=== PATIENT | female | born 1990 ===

== ENCOUNTER 2017-03-29 10:42 | Emergency (ER) | payer OTHER ==
[2017-03-29 10:43] VITALS: BMI 26.9
[2017-03-29 10:53] VITALS: O2SAT 98
[2017-03-29 11:31] LABS: RBC URINE 3 /hpf (0-3); URINE BILIRUBIN NEGATIVE (NEGATIVE); URINE BLOOD NEGATIVE (NEGATIVE); URINE COLOR Yellow (YELLOW); URINE GLUCOSE (UA) NORMAL (Normal); URINE KETONE NEGATIVE (NEGATIVE); URINE LEUKOCYTE ESTERASE NEG Leu/uL (Negative); URINE PROTEIN NEGATIVE (NEGATIVE); URINE UROBILINOGEN NORMAL mg/dL (0.2-1.0); WBC URINE 1 /hpf (0-5)
[2017-03-29] MEDS ORDERED: Sodium Chloride 0.9% 1,000 ML IV ONE (11:33)
--- NOTE | 2017-03-29 12:09 | C.PDOC ---
History Of Present Illness 26 yr old female presents to the ER with complaints of epigastric abdominal pain for the past 2-3 days. Patient reports she is and has been having pelvic cramping. LMP was 01/25. Patient reports she had a scheduled [facility] appointment today which she missed. Patient denies fever, nausea, vomiting, diarrhea, dysuria, hematuria, weakness or numbness. Time Seen by Provider: 03/29/17 10:49 Chief Complaint (Nursing): Abdominal Pain History Per: Patient History/Exam Limitations: no limitations Onset/Duration Of Symptoms: Days (2-3) Current Symptoms Are (Timing): Still Present Location Of Pain/Discomfort: Epigastric Radiation Of Pain To:: None Quality Of Discomfort: Cramping Past Medical History Reviewed: Historical Data, Nursing Documentation, Vital Signs Vital Signs: Last Vital Signs Temp 97.8 F 03/29/17 10:49 Pulse 65 03/29/17 10:49 Resp 20 03/29/17 10:49 BP 109/67 03/29/17 10:49 Pulse Ox 98 03/29/17 12:14 Surgical History: Appendectomy Family History: States: No Known Family Hx - Social History Hx Tobacco Use: No Hx Alcohol Use: No Hx Substance Use: No - Immunization History Hx Tetanus Toxoid Vaccination: No Hx Influenza Vaccination: No Hx Pneumococcal Vaccination: No Review Of Systems Except As Marked, All Systems Reviewed And Found Negative. Constitutional: Negative for: Fever Gastrointestinal: Positive for: Abdominal Pain (Epigastric). Negative for: Nausea, Vomiting, Diarrhea Genitourinary: Negative for: Dysuria, Hematuria Neurological: Negative for: Weakness, Numbness Physical Exam - Physical Exam Appears: Non-toxic, No Acute Distress Skin: Warm, Dry, No Rash Head: Atraumatic, Normacephalic Oral Mucosa: Moist Cardiovascular: Rhythm Regular, No Murmur Respiratory: Normal Breath Sounds, No Rales, No Rhonchi, No Stridor, No Wheezing Gastrointestinal/Abdominal: Normal Exam, Soft, No Tenderness, No Guarding, No Rebound Back: Normal Inspection, No CVA Tenderness Extremity: Normal ROM, No Swelling Neurological/Psych: Oriented x3, Normal Speech, Normal Motor ED Course And Treatment - Laboratory Results Result Diagrams: 03/29/17 12:19 03/29/17 12:19 O2 Sat by Pulse Oximetry: 98 (RA) Pulse Ox Interpretation: Normal Progress Note: PLAN: US - Transvaginal, Labs, HCG, Urinalysis & Sodium Chloride IV. 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 I have reviewed the chart and agree that the record accurately reflects my personal performance of the history, physical exam, medical decision making, and the department course for this patient. I have also personally directed, reviewed, and agree with the discharge instructions and disposition.
[2017-03-29 12:36] LABS: BASO % 0.2 % (0.0-2.0); EOS # 0.1 K/uL (0.0-0.7); EOS % 0.9 % (0.0-4.0); LYMPH # 2.6 K/uL (1.0-4.3); LYMPH % 22.7 % (20.0-40.0); MEAN CELL VOLUME 84.4 fL (81.0-99.0); MEAN CORPUSCULAR HGB CONC 33.1 g/dL (33.0-37.0); MEAN PLATELET VOLUME 7.7 fL (7.2-11.7); MONO # 0.8 K/uL (0.0-0.8); RED CELL DISTRIBUTION WIDTH 13.4 % (11.5-14.5); WHITE BLOOD COUNT 11.6 K/uL (4.8-10.8)
[2017-03-29 13:00] LABS: ALB/GLOB RATIO 1.7 (1.0-2.1); ALKALINE PHOSPHATASE 54 U/L (38-126); ALT/SGPT 23 U/L (9-52); AST/SGOT 13 U/L (14-36); BILIRUBIN,TOTAL 0.6 mg/dL (0.2-1.3); BLOOD UREA NITROGEN 9 mg/dL (7-17); CALCIUM 8.7 mg/dl (8.6-10.4); CARBON DIOXIDE 21 mmol/L (22-30); CHLORIDE 100 mmol/L (98-107); GFR AFRICAN-AMERICAN > 60; GLUCOSE,RANDOM 76 mg/dL (65-105); POTASSIUM 3.7 mmol/L (3.6-5.2); SODIUM 133 mmol/L (132-148); TOTAL PROTEIN 6.3 g/dL (6.3-8.3)
--- NOTE | 2017-03-29 14:07 | US ---
PROCEDURE: OB Pelvic Ultrasound HISTORY: , ABD PAIN COMPARISON: Obstetric ultrasound examination 03/07/2017. FINDINGS: The prior prior trans abdominal pelvic ultrasound revealed no definitive intrauterine gestation but no ectopic either. Left wrist. At that time was reported seven weeks 2 days which suggests 5 weeks 6 days estimate gestational age at that time and 8 weeks 5 days at this time (patient states LMP is x-ray 11/03/2017). UTERUS: Based on menstrual dates, estimated gestational age is 8 weeks 5 days. Gestational sac: Single viable intrauterine gestation with an unremarkable appearing decidual reaction. Heart rate: 156 bpm. age (Ultrasound estimated): 8 weeks 0 days based on crown-rump length of 1.55 cm. Serenity-gestational hemorrhage: None. Date of delivery (Ultrasound estimated) : 11/07/2017. Uterus measures 12.3 x 4.8 x 6.9 cm. Normal in size and appearance. No definite myometrial mass. The cervix appears unremarkable. CERVIX: Long and closed. No cervical abnormality seen. RIGHT OVARY: Measures 2.7 x 2.2 x 2.9 cm cm. No mass lesion. Normal flow. LEFT OVARY: Measures 3.5 x 1.8 x 2.9 cm. No solid mass. Normal flow. FREE FLUID: None. OTHER FINDINGS: None. IMPRESSION: Interval identification of the single intrauterine gestation is now identified with average ultrasound age of 8 weeks 0 days based on mean crown-rump length measurement alone which generally agrees with menstrual dates of 8 weeks 5 days as per above. No decidual reaction is appreciable. Further clinical correlation is advised. Ultrasound follow-up can be provided as clinically warranted. No ectopic gestation identified at this time.
[2017-03-29 15:10] VITALS: BP 96/56; PULSE 70; RESP 18; TEMP 97.7
== END 2017-03-29 15:18 | disposition home or self-care (01) ==
LOC: C.ER 10:42
DX: O26.91 Pregnancy related conditions, unspecified, first trimester (principal); Z3A.08 8 weeks gestation of pregnancy
CPT/HCPCS: 76801; 80053; 81001; 84702; 84703; 85025; 86850; 86900; 96360; 99284; J7040

== ENCOUNTER 2017-04-15 16:26 | Emergency (ER) | payer OTHER ==
[2017-04-15 16:27] VITALS: BMI 26.9
[2017-04-15 16:31] VITALS: RESP 18
[2017-04-15] MEDS ORDERED: Sodium Chloride 0.9% 1,000 ML IV ONE (17:08)
[2017-04-15] MEDS ORDERED: DiphenhydrAMINE 50 mg/ml Inj IVP STA (17:08)
[2017-04-15] MEDS ORDERED: DiphenhydrAMINE 50 mg/ml Inj ONE (17:14)
[2017-04-15] MEDS ORDERED: Sodium Chloride 0.9% 1,000 ML ONE (17:14)
--- NOTE | 2017-04-15 17:16 | C.PDOC ---
History Of Present Illness 26yo female, 11 weeks , presents to ED for evaluation of gradual onset left sided headache for the past 2 days. She states the headache is associated with nausea and photophobia as well. She denies any fever, abdominal pain, vaginal bleeding, trauma, recent travels. She denies taking any medications for her symptoms. No other complaints. Time Seen by Provider: 04/15/17 16:40 Chief Complaint (Nursing): Headache History Per: Patient History/Exam Limitations: no limitations Onset/Duration Of Symptoms: Days (2) Current Symptoms Are (Timing): Still Present Associated Symptoms: Photophobia, Nausea Additional History Per: Patient Past Medical History Reviewed: Historical Data, Nursing Documentation, Vital Signs Vital Signs: Last Vital Signs Temp 97.0 F L 04/15/17 16:29 Pulse 83 04/15/17 16:29 Resp 18 04/15/17 16:29 BP 117/74 04/15/17 16:29 Pulse Ox 100 04/15/17 18:18 - Medical History PMH: No Chronic Diseases Surgical History: Appendectomy Family History: States: Unknown Family Hx - Social History Hx Tobacco Use: No Hx Alcohol Use: No Hx Substance Use: No - Immunization History Hx Tetanus Toxoid Vaccination: No Hx Influenza Vaccination: No Hx Pneumococcal Vaccination: No Review Of Systems Constitutional: Negative for: Fever Eyes: Positive for: Other (photophobia) Gastrointestinal: Positive for: Nausea. Negative for: Abdominal Pain Genitourinary: Negative for: Vaginal Bleeding Neurological: Positive for: Headache Physical Exam - Physical Exam Appears: Non-toxic, No Acute Distress Skin: Normal Color Head: Atraumatic, Normacephalic Eye(s): bilateral: Normal Inspection Neck: Supple Neurological/Psych: Oriented x3, Normal Speech, Normal Cognition ED Course And Treatment O2 Sat by Pulse Oximetry: 100 (RA) Pulse Ox Interpretation: Normal Medical Decision Making Medical Decision Making: Impression: Headache, Plan: -- Benadryl 25 mg IVP -- Reglan 10 mg IVP -- IV Fluids Time: 1816 Urinalysis results reviewed and no clinically significant abnormalities noted. Patient reports feeling better and is stable for discharge home. Disposition Counseled Patient/Family Regarding: Studies Performed, Diagnosis, Need For Followup - Disposition Disposition: HOME/ ROUTINE Disposition Time: 18:18 Condition: STABLE Additional Instructions: follow up with medical clinic in 2 days call to make an appointment take medications as prescribed return to hospital if symptoms worsens or progress Instructions: Acute Headache (DC) Forms: [employer] (Wolof), General Discharge Instructions Print Language: MONTSERRATIAN - Clinical Impression Clinical Impression: , Headache
[2017-04-15 18:11] LABS: RBC URINE 3 /hpf (0-3); URINE BILIRUBIN NEGATIVE (NEGATIVE); URINE BLOOD NEGATIVE (NEGATIVE); URINE COLOR Yellow (YELLOW); URINE GLUCOSE (UA) NORMAL (Normal); URINE KETONE NEGATIVE (NEGATIVE); URINE LEUKOCYTE ESTERASE TRACE Leu/uL (Negative); URINE PROTEIN NEGATIVE (NEGATIVE); URINE UROBILINOGEN NORMAL mg/dL (0.2-1.0); WBC URINE 4 /hpf (0-5)
[2017-04-15 18:30] VITALS: BP 98/62; PULSE 70; TEMP 98.2; O2SAT 98
== END 2017-04-15 18:33 | disposition home or self-care (01) ==
LOC: C.ER 16:26
DX: O26.891 Other specified pregnancy related conditions, first trimester (principal); Z3A.11 11 weeks gestation of pregnancy; R51 Headache
CPT/HCPCS: 81001; 96361; 96374; 96375; 99284; J1200; J2765; J7040

== ENCOUNTER 2017-05-26 20:22 | Emergency (ER) | payer OTHER ==
[2017-05-26 20:22] VITALS: BMI 26.9
[2017-05-26 21:01] VITALS: O2SAT 98
[2017-05-26] MEDS ORDERED: Sodium Chloride 0.9% 1,000 ML IV ONE (21:32)
--- NOTE | 2017-05-26 21:32 | C.PDOC ---
History Of Present Illness 26 year old female, approximately 6-8 weeks , who presents to the emergency department with a complaint of abdominal cramping associated with nausea, dull headache and decreased PO intake ongoing since yesterday. Denied any visual changes or further complaints. PMD: none provided Time Seen by Provider: 05/26/17 21:31 Chief Complaint (Nursing): Abdominal Pain History Per: Patient History/Exam Limitations: no limitations Onset/Duration Of Symptoms: Days (x2) Current Symptoms Are (Timing): Still Present Past Medical History Reviewed: Historical Data, Nursing Documentation, Vital Signs Vital Signs: Last Vital Signs Temp 98.4 F 05/26/17 20:58 Pulse 82 05/26/17 20:58 Resp 18 05/26/17 20:58 BP 99/61 L 05/26/17 20:58 Pulse Ox 98 05/26/17 23:45 - Medical History PMH: No Chronic Diseases Surgical History: Appendectomy Other Surgeries: left breast Family History: States: Unknown Family Hx - Social History Hx Tobacco Use: No Hx Alcohol Use: No Hx Substance Use: No - Immunization History Hx Tetanus Toxoid Vaccination: No Hx Influenza Vaccination: No Hx Pneumococcal Vaccination: No Review Of Systems Constitutional: Negative for: Fever, Chills Eyes: Negative for: Redness Cardiovascular: Negative for: Chest Pain Respiratory: Negative for: Shortness of Breath Gastrointestinal: Positive for: Nausea, Other (abdominal cramping) Genitourinary: Negative for: Dysuria Musculoskeletal: Negative for: Back Pain Skin: Negative for: Rash Neurological: Positive for: Headache (dull) Psych: Negative for: Anxiety Physical Exam - Physical Exam Appears: Well, Non-toxic, No Acute Distress Skin: Warm, Dry Oral Mucosa: Moist Neck: Supple Chest: Symmetrical Cardiovascular: Rhythm Regular Respiratory: No Decreased Breath Sounds, No Accessory Muscle Use, No Rales, No Rhonchi, No Wheezing Gastrointestinal/Abdominal: Soft, Tenderness (subumbilical mildly), No Guarding , No Rebound Back: No CVA Tenderness, Decreased ROM Extremity: No Tenderness Extremity: Bilateral: Atraumatic, Normal Color And Temperature, Normal ROM Neurological/Psych: Oriented x3, Normal Speech, Normal Cognition Gait: Steady ED Course And Treatment - Laboratory Results Result Diagrams: 05/26/17 22:29 05/26/17 22:29 O2 Sat by Pulse Oximetry: 98 (RA) Pulse Ox Interpretation: Normal Reevaluation Time: 00:02 Reassessment Condition: Improved Medical Decision Making Medical Decision Making: Initial Impression: Abdominal cramping; Nausea Initial Plan: * Type and screen * BETA-HCG * CMP * CBC * PTT * PT * NS 1,000ml IV per 1,000mls/hr * Zofran inj 4mg IVP * HCG, urine * Urinalysis * US transvaginal Time: 2343 --US transvag Findings: Cervix measures 3.9 CM. Placenta is posterior, low-lying, and free of the os. Single intrauterine with cardiac activity at a heart rate of 147 beats per minute. motion is identified. Limited anatomical assessment. Estimated menstrual age 16 weeks 5 days. No free fluid in the pelvis. Ovaries not visualized. Impression: Single intrauterine with cardiac activity at approximately 16 weeks 5 days menstrual age. Scribe Attestation: Documented by Tiki Gillette, acting as a scribe for Barry Cobb MD. Provider Scribe Attestation: All medical record entries made by the Scribe were at my direction and personally dictated by me. I have reviewed the chart and agree that the record accurately reflects my personal performance of the history, physical exam, medical decision making, and the department course for this patient. I have also personally directed, reviewed, and agree with the discharge instructions and disposition. Disposition Counseled Patient/Family Regarding: Studies Performed, Diagnosis, Need For Followup, Rx Given - Disposition Disposition: HOME/ ROUTINE Disposition Time: 21:31 Condition: FAIR Additional Instructions: please return if symptoms recur Prescriptions: Ondansetron ODT [Zofran ODT] 1 odt PO BID PRN #6 odt PRN Reason: Nausea/Vomiting Instructions: Abdominal Pain in (ED), Acute Nausea and Vomiting (ED) Forms: [employer] (Mohawk) Print Language: PRYDEINIG - Clinical Impression Clinical Impression: Abdominal pain during intrauterine , Nausea, Vomiting
[2017-05-26 22:35] LABS: BASO % 0.2 % (0.0-2.0); EOS # 0.2 K/uL (0.0-0.7); EOS % 1.5 % (0.0-4.0); HEMOGLOBIN 11.2 g/dL (11.0-16.0); LYMPH # 2.9 K/uL (1.0-4.3); LYMPH % 25.4 % (20.0-40.0); MEAN CELL VOLUME 84.3 fL (81.0-99.0); MEAN CORPUSCULAR HEMOGLOBIN 28.5 pg (27.0-31.0); MEAN CORPUSCULAR HGB CONC 33.9 g/dL (33.0-37.0); MEAN PLATELET VOLUME 7.2 fL (7.2-11.7); MONO # 0.8 K/uL (0.0-0.8); MONO % 6.8 % (0.0-10.0); NEUT # 7.6 K/uL (1.8-7.0); NEUT % 66.1 % (50.0-75.0); RBC 3.92 Mil/uL (3.80-5.20); WHITE BLOOD COUNT 11.5 K/uL (4.8-10.8)
[2017-05-26 22:39] LABS: SQUAMOUS EPITHIAL 5 /hpf (0-5); URINE BILIRUBIN NEGATIVE (NEGATIVE); URINE BLOOD NEGATIVE (NEGATIVE); URINE CLARITY Clear (Clear); URINE COLOR Yellow (YELLOW); URINE GLUCOSE (UA) NORMAL (Normal); URINE LEUKOCYTE ESTERASE TRACE Leu/uL (Negative); URINE NITRATE NEGATIVE (NEGATIVE); URINE PROTEIN NEGATIVE (NEGATIVE); URINE UROBILINOGEN NORMAL mg/dL (0.2-1.0)
[2017-05-26 22:42] LABS: HCG,QUALITATIVE URINE POSITIVE (NEGATIVE)
[2017-05-26 22:51] LABS: INR 0.9; PROTHROMBIN TIME 10.4 SECONDS (9.7-12.2)
[2017-05-26 22:53] LABS: ALBUMIN 3.3 g/dL (3.5-5.0); ALT/SGPT 23 U/L (9-52); AST/SGOT 17 U/L (14-36); BLOOD UREA NITROGEN 7 mg/dL (7-17); CALCIUM 8.4 mg/dl (8.6-10.4); GFR AFRICAN-AMERICAN > 60; GFR NON-AFRICAN AMERICAN > 60
[2017-05-26 22:54] LABS: ALB/GLOB RATIO 1.2 (1.0-2.1)
--- NOTE | 2017-05-26 23:43 | US ---
History: 26 years old, female; Pain; Other: Abd pain; Gestational age or lmp: 927-17; ; Additional info: Abd pain, 12 weeks Gender: female Age: 26 years Exam: US LTD ONE OR MORE FETUSES Comparison: Cervix measures 3.9 CM. Placenta is posterior, low-lying, and free of the os. Single intrauterine with cardiac activity at a heart rate of 147 beats per minute. motion is identified. Limited anatomical assessment. Estimated menstrual age 16 weeks 5 days. No free fluid in the pelvis. Ovaries not visualized. Impression. Single intrauterine with cardiac activity at approximately 16 weeks 5 days menstrual age.
[2017-05-27 00:37] VITALS: BP 118/74; PULSE 88; RESP 16; TEMP 98.3
== END 2017-05-26 23:55 | disposition home or self-care (01) ==
LOC: C.ER 20:22
DX: O26.892 Other specified pregnancy related conditions, second trimester (principal); R10.30 Lower abdominal pain, unspecified; O21.9 Vomiting of pregnancy, unspecified; Z3A.16 16 weeks gestation of pregnancy
CPT/HCPCS: 76815; 80053; 81001; 84702; 84703; 85025; 85610; 85730; 86850; 86900; 96374; 99285; J2405; J7040